=== PATIENT | female | born 1945 | race Caucasian/White ===

== ENCOUNTER → 2017-03-17 | Outpatient (CLI) | payer MEDICARE ==
[2017-03-17 14:07] LABS: ALT 28 U/L (9-52); AST 17 U/L (14-36); Cholesterol 247 mg/dL (<200); HDL Cholesterol 50 mg/dL (40-60); Triglycerides 207 mg/dL (<150)
== END | disposition home or self-care (01) ==
LOC: LABWHC1 13:19
PROVIDERS: ATTEND Internal Medicine Cardiovascular Disease
DX: E78.2 Mixed hyperlipidemia (principal)
CPT/HCPCS: 36415; 80061; 84450; 84460

== ENCOUNTER 2017-11-28 16:45 | Inpatient (IN) | payer MEDICARE, OTHER ==
[2017-11-28] MEDS ORDERED: SODIUM CHLORIDE 0.9% 1,000 ML IV ONE ×3 (17:33→19:32)
[2017-11-28] MEDS ORDERED: IBUPROFEN 600 MG TAB PO STA (17:34)
[2017-11-28] MEDS ORDERED: ACETAMINOPHEN TAB 500 MG TAB PO STA (17:34)
--- NOTE | 2017-11-28 17:37 | ED ---
Female Urogenital HPI - General Chief complaint: Urogenital Stated complaint: UTI Time Seen by Provider: 11/28/17 17:12 Source: patient, RN notes reviewed, old records reviewed Mode of arrival: EMS Limitations: physical limitation - History of Present Illness Initial comments: Patient is a 72-year-old female multiple comorbidities including history of stroke with left-sided paralysis presents today with chief complaint of fever, polyuria and she has urinary tract infection. Patient reports that she has had the symptoms for the past week. She reports that she's had elevated blood sugars for the past month. Patient's daughter did pull me aside and states that they are searching for placement into a intermediate as they are unable to take care of her with home care at this time. Patient has had fevers and chills. Patient is been having Motrin and Tylenol but has not had anything recently. Patient reports that she is on daily Keflex for UTI prevention. Patient also reports that she's been having some episodes of chest pain yesterday. She reports that that has subsided and denies any specific chest pain at this time. She does report that she is having some labored breathing. Patient reports that she's had a history of 4 cardiac stents, hyperlipidemia, high blood pressure, diabetes. - Related Data Home Medications Medication Instructions Recorded Confirmed Isosorbide Mononitrate [Imdur] 30 mg PO DAILY 03/12/14 11/28/17 Apixaban [Eliquis] 5 mg PO BID 08/17/17 11/28/17 Aspirin EC [Ecotrin Low Dose] 81 mg PO DAILY 08/17/17 11/28/17 Ezetimibe [Zetia] 10 mg PO HS 08/17/17 11/28/17 Insulin Aspart [NovoLOG 15 unit SQ AC-TID 08/17/17 11/28/17 (formulary)] Insulin Glargine [Lantus] 25 unit SQ HS 08/17/17 11/28/17 NIFEdipine [NIFEdipine ER] 30 mg PO DAILY 08/17/17 11/28/17 NIFEdipine [NIFEdipine ER] 90 mg PO HS 08/17/17 11/28/17 Ranolazine [Ranexa] 500 mg PO Q12HR 08/17/17 11/28/17 hydrALAZINE HCL [Apresoline] 100 mg PO Q8HR 08/17/17 11/28/17 Cephalexin [Keflex] 250 mg PO DAILY 11/28/17 11/28/17 Docusate [Colace] 100 mg PO BID 11/28/17 11/28/17 Methocarbamol [Robaxin] 500 mg PO BID PRN 11/28/17 11/28/17 Methocarbamol [Robaxin] 500 mg PO HS 11/28/17 11/28/17 Nitroglycerin Sl Tabs [Nitrostat] 0.4 mg SUBLINGUAL Q5M PRN 11/28/17 11/28/17 Previous Rx's Medication Instructions Recorded Losartan [Cozaar] 12.5 mg PO DAILY tab 08/20/17 Allergies Allergy/AdvReac Type Severity Reaction Status Date / Time No Known Allergies Allergy Verified 11/28/17 17:32 Review of Systems ROS Statement: Those systems with pertinent positive or pertinent negative responses have been documented in the HPI. ROS Other: All systems not noted in ROS Statement are negative. Past Medical History Past Medical History: Coronary Artery Disease (CAD), CVA/TIA, Diabetes Mellitus , Deep Vein Thrombosis (DVT), GERD/Reflux, Hyperlipidemia, Hypertension, Myocardial Infarction ([place]), Pneumonia, Renal Disease Additional Past Medical History / Comment(s): Kidney Stones S/P lithotripsy,ibs, migraines, shingles 2007. cva-mild lt sided weakness more are than leg but uses cane when up and has fallen in past. pt has small airway -makes intubation difficult pt usually wears a medical alert bracelet stating this. Stroke 2016. CKD III Last Myocardial Infarction Date:: History of Any Multi-Drug Resistant Organisms: None Reported Past Surgical History: Appendectomy, Bowel Resection, Section, Cholecystectomy, Heart Catheterization With Stent, Hysterectomy Additional Past Surgical History / Comment(s): lithotripsy, umbilical hernia repair, 3 heart caths and 4 stents, prt stated had bowel resection(prolapsed bowel) Past Anesthesia/Blood Transfusion Reactions: No Reported Reaction Date of Last Stent Placement:: UNK Past Psychological History: No Psychological Hx Reported Smoking Status: Never smoker Past Alcohol Use History: None Reported Past Drug Use History: None Reported - Past Family History Mother Family Medical History: Cancer, Diabetes Mellitus, Myocardial Infarction ([place]) General Exam - General Exam Comments Initial Comments: This patient is a morbidly obese 72-year-old female. Patient has contracture of the left arm. She is alert oriented 4. Limitations: physical limitation General appearance: alert, in no apparent distress Head exam: Present: atraumatic, normocephalic, normal inspection Eye exam: Present: normal appearance, PERRL, EOMI. Absent: scleral icterus, conjunctival injection, periorbital swelling ENT exam: Present: normal exam, mucous membranes moist Neck exam: Present: normal inspection. Absent: tenderness, meningismus, lymphadenopathy Respiratory exam: Present: normal lung sounds bilaterally. Absent: respiratory distress, wheezes, rales, rhonchi, stridor Cardiovascular Exam: Present: regular rate, normal rhythm, normal heart sounds. Absent: systolic murmur, diastolic murmur, rubs, gallop, clicks GI/Abdominal exam: Present: soft, tenderness (Suprapubic tenderness.), normal bowel sounds. Absent: distended, guarding, rebound, rigid Extremities exam: Present: normal inspection, full ROM, normal capillary refill. Absent: tenderness, pedal edema, joint swelling, calf tenderness Back exam: Present: normal inspection Neurological exam: Present: alert Psychiatric exam: Present: normal affect, normal mood Skin exam: Present: warm, dry, intact, normal color. Absent: rash Course Vital Signs 11/28/17 11/28/17 17:04 18:55 Temperature 100.2 F H 97.9 F Pulse Rate 108 H 87 Respiratory 18 16 Rate Blood Pressure 146/77 151/70 O2 Sat by Pulse 96 98 Oximetry - Reevaluation(s) Reevaluation #1: 11/28/17 19:34 Patient does meet sepsis criteria with evidence of infection UTI, white blood count 11.3. She is febrile at 100.1. Medical Decision Making - Medical Decision Making Patient is a 72-year-old female presents emergency Department with a fever, dysuria. She is on Keflex daily for urine check infection prevention. Patient reports she has some suprapubic tenderness. She also mentions that yesterday she did have some left-sided chest pain. She denies any specific chest pain at this time. Patient does have a cardiac history with 4 stents, patient's capital markets specialist is Dr. Patiño. Patient urinalysis is positive for significant infection. Urine culture obtained. She does have mildly low white blood count of 11.4. Patient does meet sepsis criteria. PPatient atient lactic acid was negative at this time however. She was given 2 L fluid bolus. I did start the patient on Levaquin due to likely resistant organism to Keflex for UTI and sepsis. Patient is also noted the patient had an elevated troponin of 0.1.84. The patient EKG showed no significant acute changes at this time. Patient started on heparin drip, given nitro and morphine. Patient's family informed of these results. Patient will be admitted at this time for NSTEMI, and urosepsis. Patient's family understands treatment plan. - Lab Data Result diagrams: 11/28/17 18:05 11/28/17 18:05 Lab Results 11/28/17 11/28/17 11/28/17 Range/Units 18:05 18:05 18:05 WBC 11.2 H (3.8-10.6) k/uL RBC 3.88 (3.80-5.40) m/uL Hgb 11.6 (11.4-16.0) gm/dL Hct 35.7 (34.0-46.0) % MCV 92.0 (80.0-100.0) fL MCH 29.9 (25.0-35.0) pg MCHC 32.5 (31.0-37.0) g/dL RDW 15.1 (11.5-15.5) % Plt Count 272 (150-450) k/uL Neutrophils % 73 % Lymphocytes % 19 % Monocytes % 4 % Eosinophils % 2 % Basophils % 1 % Neutrophils # 8.2 H (1.3-7.7) k/uL Lymphocytes # 2.1 (1.0-4.8) k/uL Monocytes # 0.5 (0-1.0) k/uL Eosinophils # 0.2 (0-0.7) k/uL Basophils # 0.1 (0-0.2) k/uL PT 10.7 (9.0-12.0) sec INR 1.1 (<1.2) APTT 27.3 (22.0-30.0) sec Sodium 145 (137-145) mmol/L Potassium 3.8 (3.5-5.1) mmol/L Chloride 114 H (98-107) mmol/L Carbon Dioxide 17 L (22-30) mmol/L Anion Gap 14 mmol/L BUN 27 H (7-17) mg/dL Creatinine 1.80 H (0.52-1.04) mg/dL Est GFR (MDRD) Af Amer 34 (>60 ml/min/1.73 sqM) Est GFR (MDRD) Non-Af 28 (>60 ml/min/1.73 sqM) Glucose 159 H (74-99) mg/dL POC Glucose (mg/dL) (75-99) mg/dL POC Glu Retail Operations Specialist ID Plasma Lactic Acid Jaspreet (0.7-2.0) mmol/L Calcium 10.1 (8.4-10.2) mg/dL Total Bilirubin 0.3 (0.2-1.3) mg/dL AST 13 L (14-36) U/L ALT 20 (9-52) U/L Alkaline Phosphatase 111 (38-126) U/L Total Creatine Kinase (30-135) U/L CK-MB (CK-2) (0.0-2.4) ng/mL CK-MB (CK-2) Rel Index Troponin I (0.000-0.034) ng/mL Total Protein 7.2 (6.3-8.2) g/dL Albumin 3.7 (3.5-5.0) g/dL Urine Color Urine Appearance (Clear) Urine pH (5.0-8.0) Ur Specific [place] (1.001-1.035) Urine Protein (Negative) Urine Glucose (UA) (Negative) Urine Ketones (Negative) Urine Blood (Negative) Urine Nitrite (Negative) Urine Bilirubin (Negative) Urine Urobilinogen (<2.0) mg/dL Ur Leukocyte Esterase (Negative) Urine RBC (0-5) /hpf Urine WBC (0-5) /hpf Urine WBC Clumps (None) /hpf Hyaline Casts (0-2) /lpf Urine Yeast (Budding) (None) /hpf Influenza Type A RNA (Not Detectd) Influenza Type B (PCR) (Not Detectd) 11/28/17 11/28/17 11/28/17 Range/Units 18:05 18:05 18:12 WBC (3.8-10.6) k/uL RBC (3.80-5.40) m/uL Hgb (11.4-16.0) gm/dL Hct (34.0-46.0) % MCV (80.0-100.0) fL MCH (25.0-35.0) pg MCHC (31.0-37.0) g/dL RDW (11.5-15.5) % Plt Count (150-450) k/uL Neutrophils % % Lymphocytes % % Monocytes % % Eosinophils % % Basophils % % Neutrophils # (1.3-7.7) k/uL Lymphocytes # (1.0-4.8) k/uL Monocytes # (0-1.0) k/uL Eosinophils # (0-0.7) k/uL Basophils # (0-0.2) k/uL PT (9.0-12.0) sec INR (<1.2) APTT (22.0-30.0) sec Sodium (137-145) mmol/L Potassium (3.5-5.1) mmol/L Chloride (98-107) mmol/L Carbon Dioxide (22-30) mmol/L Anion Gap mmol/L BUN (7-17) mg/dL Creatinine (0.52-1.04) mg/dL Est GFR (MDRD) Af Amer (>60 ml/min/1.73 sqM) Est GFR (MDRD) Non-Af (>60 ml/min/1.73 sqM) Glucose (74-99) mg/dL POC Glucose (mg/dL) (75-99) mg/dL POC Glu Retail Operations Specialist ID Plasma Lactic Acid Jaspreet 1.7 (0.7-2.0) mmol/L Calcium (8.4-10.2) mg/dL Total Bilirubin (0.2-1.3) mg/dL AST (14-36) U/L ALT (9-52) U/L Alkaline Phosphatase (38-126) U/L Total Creatine Kinase 33 (30-135) U/L CK-MB (CK-2) 1.0 (0.0-2.4) ng/mL CK-MB (CK-2) Rel Index 3.0 Troponin I 0.148 H* (0.000-0.034) ng/mL Total Protein (6.3-8.2) g/dL Albumin (3.5-5.0) g/dL Urine Color Urine Appearance (Clear) Urine pH (5.0-8.0) Ur Specific [place] (1.001-1.035) Urine Protein (Negative) Urine Glucose (UA) (Negative) Urine Ketones (Negative) Urine Blood (Negative) Urine Nitrite (Negative) Urine Bilirubin (Negative) Urine Urobilinogen (<2.0) mg/dL Ur Leukocyte Esterase (Negative) Urine RBC (0-5) /hpf Urine WBC (0-5) /hpf Urine WBC Clumps (None) /hpf Hyaline Casts (0-2) /lpf Urine Yeast (Budding) (None) /hpf Influenza Type A RNA Not Detected (Not Detectd) Influenza Type B (PCR) Not Detected (Not Detectd) 11/28/17 11/28/17 Range/Units 18:12 18:39 WBC (3.8-10.6) k/uL RBC (3.80-5.40) m/uL Hgb (11.4-16.0) gm/dL Hct (34.0-46.0) % MCV (80.0-100.0) fL MCH (25.0-35.0) pg MCHC (31.0-37.0) g/dL RDW (11.5-15.5) % Plt Count (150-450) k/uL Neutrophils % % Lymphocytes % % Monocytes % % Eosinophils % % Basophils % % Neutrophils # (1.3-7.7) k/uL Lymphocytes # (1.0-4.8) k/uL Monocytes # (0-1.0) k/uL Eosinophils # (0-0.7) k/uL Basophils # (0-0.2) k/uL PT (9.0-12.0) sec INR (<1.2) APTT (22.0-30.0) sec Sodium (137-145) mmol/L Potassium (3.5-5.1) mmol/L Chloride (98-107) mmol/L Carbon Dioxide (22-30) mmol/L Anion Gap mmol/L BUN (7-17) mg/dL Creatinine (0.52-1.04) mg/dL Est GFR (MDRD) Af Amer (>60 ml/min/1.73 sqM) Est GFR (MDRD) Non-Af (>60 ml/min/1.73 sqM) Glucose (74-99) mg/dL POC Glucose (mg/dL) 132 H (75-99) mg/dL POC Glu Retail Operations Specialist ID Audelia Crow Plasma Lactic Acid Jaspreet (0.7-2.0) mmol/L Calcium (8.4-10.2) mg/dL Total Bilirubin (0.2-1.3) mg/dL AST (14-36) U/L ALT (9-52) U/L Alkaline Phosphatase (38-126) U/L Total Creatine Kinase (30-135) U/L CK-MB (CK-2) (0.0-2.4) ng/mL CK-MB (CK-2) Rel Index Troponin I (0.000-0.034) ng/mL Total Protein (6.3-8.2) g/dL Albumin (3.5-5.0) g/dL Urine Color Dark Yellow Urine Appearance Cloudy H (Clear) Urine pH 6.0 (5.0-8.0) Ur Specific [place] 1.017 (1.001-1.035) Urine Protein 3+ (Negative) Urine Glucose (UA) 1+ (Negative) Urine Ketones Negative (Negative) Urine Blood Negative (Negative) Urine Nitrite Negative (Negative) Urine Bilirubin Negative (Negative) Urine Urobilinogen <2.0 (<2.0) mg/dL Ur Leukocyte Esterase Large (Negative) Urine RBC 22 H (0-5) /hpf Urine WBC >182 H (0-5) /hpf Urine WBC Clumps Many H (None) /hpf Hyaline Casts 99 H (0-2) /lpf Urine Yeast (Budding) Moderate H (None) /hpf Influenza Type A RNA (Not Detectd) Influenza Type B (PCR) (Not Detectd) 11/28/17 19:33 EKG shows sinus rhythm with occasional PACs. Normal QRS and table. Considering primary T-wave abnormality. Ventricular rate of 8 87 bpm. IL interval 160 ms. QRS duration a formal seconds. QTQTC 390/469 ms. - Radiology Data Radiology results: report reviewed Chronic changes without any acute cardiopulmonary process. Abdominal x-ray shows on instructed bowel gas pattern. Moderate stool burn them. Either bilateral nephrolithiasis or renal vascular calcifications. Disposition Clinical Impression: Sepsis due to urinary tract infection, NSTEMI (non-ST elevated myocardial infarction), HTN (hypertension), benign, CKD (chronic kidney disease) stage 3, GFR 30-59 ml/min Disposition: ADMITTED IP TO THIS HOSP Condition: Stable Referrals: Kem Stanley MD [Primary Care Provider] - 1-2 days Time of Disposition: 19:34
[2017-11-28 18:24] LABS: Basophils # (A) 0.1 k/uL (0-0.2); Basophils % (A) 1 %; Eosinophils # (A) 0.2 k/uL (0-0.7); Eosinophils % (A) 2 %; HCT 35.7 % (34.0-46.0); HGB 11.6 gm/dL (11.4-16.0); Lymphocytes # (A) 2.1 k/uL (1.0-4.8); Lymphocytes % (A) 19 %; MCH 29.9 pg (25.0-35.0); MCHC 32.5 g/dL (31.0-37.0); Mean Platelet Volume 10.3; Monocytes # (A) 0.5 k/uL (0-1.0); Monocytes % (A) 4 %; Neutrophils # (A) 8.2 k/uL (1.3-7.7); Neutrophils % (A) 73 %; Platelet Count 272 k/uL (150-450); RBC 3.88 m/uL (3.80-5.40); RDW 15.1 % (11.5-15.5); WBC 11.2 k/uL (3.8-10.6)
[2017-11-28 18:35] LABS: INR 1.1 (<1.2); Partial Thromboplastin Time 27.3 sec (22.0-30.0); Prothrombin Time 10.7 sec (9.0-12.0)
[2017-11-28 18:40] LABS: Glucose,Whole Blood 132 mg/dL (75-99)
[2017-11-28 18:42] LABS: Albumin 3.7 g/dL (3.5-5.0); Calcium 10.1 mg/dL (8.4-10.2); Potassium 3.8 mmol/L (3.5-5.1); Total Bilirubin 0.3 mg/dL (0.2-1.3); Total Protein 7.2 g/dL (6.3-8.2)
--- NOTE | 2017-11-28 18:42 | XR ---
EXAMINATION TYPE: XR KUB DATE OF EXAM: 11/28/2017 CLINICAL DATA: 72-year-old female with pain, PHH COMPARISON: None FINDINGS: Lung bases are clear. Supine imaging is limited for assessment of free intraperitoneal air. No dilated small bowel or air-fluid levels. Scattered air throughout the colon extending distally to the rectum. Mild to moderate stool burden. Vascular calcifications in the pelvis and left upper quadrant related to the splenic artery. Either a dditional renal calcifications or bilateral renal calculi measuring up to 8 mm on the left and 5 mm o n the right. IMPRESSION: 1. Nonobstructive bowel gas pattern. Moderate stool burden. 2. Either bilateral nephrolithiasis or renal vascular calcifications.
--- NOTE | 2017-11-28 18:44 | XR ---
EXAMINATION TYPE: XR chest 2V DATE OF EXAM: 11/28/2017 COMPARISON: 08/17/2017 HISTORY: 72-year-old female with fever TECHNIQUE: AP and lateral views FINDINGS: Heart upper limits of normal in size. Mild elongation of the thoracic aorta. Diffuse interstitial pro minence is unchanged. No consolidation or pleural effusion. IMPRESSION: Chronic changes without acute cardiopulmonary process.
[2017-11-28 18:53] LABS: Budding Yeast,Urine Moderate /hpf; Hyaline Casts,Urine 99 /lpf (0-2); RBC,Urine 22 /hpf (0-5); WBC,Urine >182 /hpf (0-5)
[2017-11-28 19:00] LABS: Troponin I 0.148 ng/mL (0.000-0.034)
[2017-11-28] MEDS ORDERED: LEVOFLOXACIN 750MG-D5W PMX 750 MG in DEXTROSE/WATER 1 150ML.BAG IVPB STA (19:10)
[2017-11-28] MEDS ORDERED: ASPIRIN 325 MG TAB PO STA (19:11)
[2017-11-28] MEDS ORDERED: MORPHINE SULFATE 2 MG/ML SYRINGE IVP ONE (19:11)
[2017-11-28 19:17] LABS: Appearance,Urine Cloudy (Clear); Color,Urine Dark Yellow; Specific Gravity,Urine 1.017 (1.001-1.035)
[2017-11-28 19:18] LABS: Bilirubin,Urine Negative (Negative); Blood,Urine Negative (Negative); Glucose,Urine (UA) 1+ (Negative); Ketones,Urine Negative (Negative); Protein,Urine 3+ (Negative)
[2017-11-28 19:19] LABS: Leukocyte Esterase,Urine Large (Negative); Nitrite,Urine Negative (Negative); Urobilinogen,Urine <2.0 mg/dL (<2.0)
[2017-11-28] MEDS ORDERED: HEPARIN SODIUM,PORCINE 5,000 UNIT/ML 1 ML VIAL IV ONE (19:25)
[2017-11-28] MEDS ORDERED: MORPHINE SULFATE 2 MG/ML SYRINGE IVP STA (19:34)
[2017-11-28] MEDS ORDERED: ONDANSETRON 4 MG/2 ML VIAL IVP STA (19:41)
[2017-11-28] MEDS ORDERED: ONDANSETRON 4 MG/2 ML VIAL IVP PRN (19:42)
[2017-11-28] MEDS ORDERED: IBUPROFEN 400 MG TAB PO PRN (19:42)
[2017-11-28] MEDS ORDERED: NALOXONE 0.4 MG/ML 1 ML VIAL IV PRN (19:42)
[2017-11-28] MEDS ORDERED: HYDROmorphone 0.5 MG/0.5 ML SYRINGE IVP PRN (19:42)
[2017-11-28 20:42] LABS: Glucose,Whole Blood 105 mg/dL (75-99)
[2017-11-28] MEDS: SODIUM CHLORIDE 0.9% 1,000 ML IV SCH (21:53)
[2017-11-28 22:04] VITALS: BMI 36.6
[2017-11-28] MEDS ORDERED: HEPARIN SODIUM,PORCINE 5,000 UNIT/ML 1 ML VIAL IV PRN (22:45)
[2017-11-28] MEDS ORDERED: HEPARIN SOD,PORK IN 0.45% NACL 25,000 UNIT in 0.45% NACL 1 500ML.BAG IV SCH (22:45)
[2017-11-28] MEDS: EZETIMIBE 10 MG TAB PO SCH (23:26)
[2017-11-28] MEDS: RANOLAZINE 500 MG TAB.ER.12H PO SCH (23:27)
[2017-11-28] MEDS: hydrALAZINE HCL 50 MG TAB PO SCH (23:27)
[2017-11-28] MEDS: NIFEdipine XL 90 MG TAB.ER.24 PO SCH (23:58)
[2017-11-29 01:34] LABS: Creatine Kinase MB 1.4 ng/mL (0.0-2.4); Troponin I 0.192 ng/mL (0.000-0.034)
[2017-11-29] MEDS: SODIUM CHLORIDE 0.9% 1,000 ML IV SCH ×2 (05:33→16:23)
[2017-11-29 05:38] LABS: Glucose,Whole Blood 112 mg/dL (75-99)
[2017-11-29] MEDS: INSULIN ASPART 100 UNIT/ML 1 ML 10 ML VIAL SQ SCH ×4 (06:09→22:04)
[2017-11-29 06:43] LABS: Basophils # (A) 0.1 k/uL (0-0.2); Basophils % (A) 1 %; Eosinophils # (A) 0.4 k/uL (0-0.7); Eosinophils % (A) 6 %; HCT 31.3 % (34.0-46.0); Lymphocytes # (A) 2.4 k/uL (1.0-4.8); Lymphocytes % (A) 35 %; MCH 29.6 pg (25.0-35.0); MCHC 31.9 g/dL (31.0-37.0); Mean Platelet Volume 8.9; Monocytes # (A) 0.3 k/uL (0-1.0); Monocytes % (A) 4 %; Neutrophils # (A) 3.5 k/uL (1.3-7.7); Neutrophils % (A) 52 %; Platelet Count 199 k/uL (150-450); RBC 3.37 m/uL (3.80-5.40); RDW 13.9 % (11.5-15.5); WBC 6.7 k/uL (3.8-10.6)
[2017-11-29 06:53] LABS: Cholesterol 145 mg/dL (<200); HDL Cholesterol 35 mg/dL (40-60); LDL Cholesterol,Calculated 74 mg/dL (0-99); Triglycerides 178 mg/dL (<150)
[2017-11-29] MEDS: NITROGLYCERIN SL TABS 0.4 MG TAB SUBLINGUAL PRN ×5 (07:01→15:33)
[2017-11-29 07:15] LABS: Creatine Kinase MB 1.5 ng/mL (0.0-2.4)
[2017-11-29 07:23] LABS: Troponin I 0.143 ng/mL (0.000-0.034)
[2017-11-29] MEDS: DOCUSATE 100 MG CAP PO SCH ×2 (07:56→22:05)
[2017-11-29] MEDS: hydrALAZINE HCL 50 MG TAB PO SCH ×2 (07:56→16:25)
[2017-11-29] MEDS: ASPIRIN 81 MG PO SCH (07:56)
[2017-11-29] MEDS: ISOSORBIDE MONONITRATE ER 30 MG TAB.ER.24H PO SCH (07:57)
[2017-11-29] MEDS: NIFEdipine XL 30 MG TAB.ER.24 PO SCH (07:58)
[2017-11-29] MEDS: RANOLAZINE 500 MG TAB.ER.12H PO SCH ×2 (07:59→22:05)
[2017-11-29] MEDS ORDERED: PANTOPRAZOLE 40 MG/10 ML VIAL IV SCH (09:00)
[2017-11-29] MEDS ORDERED: LOSARTAN 25 MG TAB PO SCH (09:00)
[2017-11-29 11:48] LABS: Glucose,Whole Blood 194 mg/dL (75-99)
--- NOTE | 2017-11-29 14:07 | P.CRDCN ---
History of Present Illness History of present illness: Patient presents to the hospital complaining of fever or polyuria and urinary tract symptoms. She's also had elevated blood sugars for the last month. She is feeling chills. She also has some chest discomfort yesterday but this is now subsided. According to the ER notes she was having some labored breathing yesterday but upon my examination and evaluation she looked quite comfortable and was resting comfortably in bed. She has had stroke in the past Medication list was reviewed and as documented in the chart Review of systems: + fever chills or rigors, no cough, phlegm or expectoration, no nausea, vomiting or diarrhea, no hematuria, + dysuria, no musculoskeletal complaints, no strokes or seizures, no skin lesions. ALLERGIES reviewed Past history of coronary artery disease N[place] stenting dyslipidemia hypertension adult-onset diabetes she is also ELIQUIS probably for atrial fibrillation On examination blood pressure is 135/61 mmHg, she is afebrile 98.2F, pulse rate in the 80s and 90s, normal respirations Breath sounds are clear no rhonchi no crackles Abdomen soft nontender extremities warm Lungs are clear heart sounds S1 and S2 normal Impression Patient admitted with fever polyuria UTI Coronary artery disease status post cardiac stenting in the past Dyslipidemia Hypertension Adult-onset diabetes Atrial fibrillation, on ELIQUIS EKG shows sinus rhythm Abnormal troponins of 0.1 consistent with myocardial injury Intermittent left-sided chest discomfort prior to admission EKG does not show any ST segment elevations Suggest Treatment for UTI 12 Lead ECG tomorrow, 2-D echo tomorrow Beta blockers Statins Aspirin Reevaluation in the next 24-48 hours Past Medical History Past Medical History: Coronary Artery Disease (CAD), CVA/TIA, Diabetes Mellitus , Deep Vein Thrombosis (DVT), GERD/Reflux, Hyperlipidemia, Hypertension, Myocardial Infarction ([place]), Pneumonia, Renal Disease Additional Past Medical History / Comment(s): Kidney Stones S/P lithotripsy,ibs, migraines, shingles 2007. cva- lt sided weakness more are than leg but uses cane when up and has fallen in past. pt has small airway -makes intubation difficult pt usually wears a medical alert bracelet stating this. Stroke 2017. CKD III Last Myocardial Infarction Date:: History of Any Multi-Drug Resistant Organisms: None Reported Past Surgical History: Appendectomy, Bowel Resection, Section, Cholecystectomy, Heart Catheterization With Stent, Hysterectomy Additional Past Surgical History / Comment(s): lithotripsy, umbilical hernia repair, 3 heart caths and 4 stents, prt stated had bowel resection(prolapsed bowel) Past Anesthesia/Blood Transfusion Reactions: No Reported Reaction Date of Last Stent Placement:: UNK Past Psychological History: No Psychological Hx Reported Additional Psychological History / Comment(s): uses wheelchair Smoking Status: Never smoker Past Alcohol Use History: None Reported Past Drug Use History: None Reported - Past Family History Mother Family Medical History: Cancer, Diabetes Mellitus, Myocardial Infarction ([place]) Medications and Allergies Home Medications Medication Instructions Recorded Confirmed Type RX: Isosorbide Mononitrate [Imdur] 30 mg PO DAILY 03/12/14 11/28/17 History RX: Apixaban [Eliquis] 5 mg PO BID 08/17/17 11/28/17 History RX: Aspirin EC [Ecotrin Low Dose] 81 mg PO DAILY 08/17/17 11/28/17 History RX: Ezetimibe [Zetia] 10 mg PO HS 08/17/17 11/28/17 History RX: Insulin Aspart [NovoLOG 15 unit SQ AC-TID 08/17/17 11/28/17 History (formulary)] RX: Insulin Glargine [Lantus] 25 unit SQ HS 08/17/17 11/28/17 History RX: NIFEdipine [NIFEdipine ER] 30 mg PO DAILY 08/17/17 11/28/17 History RX: NIFEdipine [NIFEdipine ER] 90 mg PO HS 08/17/17 11/28/17 History RX: Ranolazine [Ranexa] 500 mg PO Q12HR 08/17/17 11/28/17 History RX: hydrALAZINE HCL [Apresoline] 100 mg PO Q8HR 08/17/17 11/28/17 History RX: Losartan [Cozaar] 12.5 mg PO DAILY tab 08/20/17 11/28/17 Rx Cephalexin [Keflex] 250 mg PO DAILY 11/28/17 11/28/17 History Docusate [Colace] 100 mg PO BID 11/28/17 11/28/17 History Methocarbamol [Robaxin] 500 mg PO BID PRN 11/28/17 11/28/17 History Methocarbamol [Robaxin] 500 mg PO HS 11/28/17 11/28/17 History Nitroglycerin Sl Tabs [Nitrostat] 0.4 mg SUBLINGUAL Q5M PRN 11/28/17 11/28/17 History Allergies Allergy/AdvReac Type Severity Reaction Status Date / Time No Known Allergies Allergy Verified 11/28/17 17:32 Physical Exam Vitals: Vital Signs Temp Pulse Pulse Resp BP BP Pulse Ox 11/29/17 08:00 98.2 F 80 16 128/71 98 11/29/17 04:00 97.8 F 84 18 152/68 96 11/29/17 00:00 97.0 F L 80 18 151/67 96 11/28/17 21:58 98.1 F 90 18 153/66 99 11/28/17 21:00 98.1 F 90 18 153/66 99 11/28/17 19:59 97.8 F 89 18 154/85 98 11/28/17 18:55 97.9 F 87 16 151/70 98 11/28/17 17:04 100.2 F H 108 H 18 146/77 96 Intake and Output 11/28/17 11/29/17 11/29/17 22:59 06:59 14:59 Other: Weight 91 kg 88 kg Results 11/29/17 06:14 11/28/17 18:05 Cardiac Enzymes 11/28/17 11/28/17 11/29/17 Range/Units 18:05 18:05 00:28 AST 13 L (14-36) U/L CK-MB (CK-2) 1.0 1.4 (0.0-2.4) ng/mL Troponin I 0.148 H* 0.192 H* (0.000-0.034) ng/mL 11/29/17 Range/Units 06:14 AST (14-36) U/L CK-MB (CK-2) 1.5 (0.0-2.4) ng/mL Troponin I 0.143 H* (0.000-0.034) ng/mL Coagulation 11/28/17 11/29/17 Range/Units 18:05 06:14 PT 10.7 (9.0-12.0) sec APTT 27.3 54.8 H (22.0-30.0) sec Lipids 11/29/17 Range/Units 06:14 Triglycerides 178 H (<150) mg/dL Cholesterol 145 (<200) mg/dL HDL Cholesterol 35 L (40-60) mg/dL CBC 11/28/17 11/29/17 Range/Units 18:05 06:14 WBC 11.2 H 6.7 (3.8-10.6) k/uL RBC 3.88 3.37 L (3.80-5.40) m/uL Hgb 11.6 10.0 L D (11.4-16.0) gm/dL Hct 35.7 31.3 L (34.0-46.0) % Plt Count 272 199 (150-450) k/uL Comprehensive Metabolic Panel 11/28/17 Range/Units 18:05 Sodium 145 (137-145) mmol/L Potassium 3.8 (3.5-5.1) mmol/L Chloride 114 H (98-107) mmol/L Carbon Dioxide 17 L (22-30) mmol/L BUN 27 H (7-17) mg/dL Creatinine 1.80 H (0.52-1.04) mg/dL Glucose 159 H (74-99) mg/dL Calcium 10.1 (8.4-10.2) mg/dL AST 13 L (14-36) U/L ALT 20 (9-52) U/L Alkaline Phosphatase 111 (38-126) U/L Total Protein 7.2 (6.3-8.2) g/dL Albumin 3.7 (3.5-5.0) g/dL Current Medications Generic Name Dose Route Start Last Admin Trade Name Freq PRN Reason Stop Dose Admin Acetaminophen 650 mg 11/28/17 19:42 Tylenol Tab PO Q6HR PRN Mild Pain or Fever > 100.5 Aspirin 81 mg 11/29/17 09:00 11/29/17 07:56 Aspirin PO 81 mg DAILY ZI Administration Atorvastatin Calcium 20 mg 11/29/17 21:00 Lipitor PO HS ZI Docusate Sodium 100 mg 11/29/17 09:00 11/29/17 07:56 Colace PO 100 mg BID ZI Administration Ezetimibe 10 mg 11/28/17 22:45 11/28/17 23:26 Zetia PO 10 mg HS ZI Administration Heparin Sodium (Porcine) 0 unit 11/28/17 22:45 Heparin IV PER PROTOCOL PRN Low PTT Protocol Hydralazine HCl 100 mg 11/29/17 00:00 11/29/17 07:56 Apresoline PO 100 mg Q8HR ZI Administration Sodium Chloride 1,000 mls @ 100 mls/hr 11/28/17 19:45 11/29/17 05:33 Saline 0.9% IV Not Given .Q10H [facility] Heparin Sodium/Sodium Chloride 500 mls @ 20.02 mls/hr 11/28/17 22:45 23:27 25,000 unit/ Sodium Chloride IV 11 units/kg/hr .Q24H ZI 20.02 mls/hr Protocol Administration 11 UNITS/KG/HR Levofloxacin 750 mg/ IV 150 mls @ 100 mls/hr 11/29/17 21:00 Solution IVPB Q24H [facility] Insulin Aspart 0 unit 11/29/17 07:30 11/29/17 06:09 Novolog SQ Not Given ACHS [facility] Protocol Insulin Detemir 15 unit 11/29/17 21:00 Levemir SQ HS [facility] Isosorbide Mononitrate 30 mg 11/29/17 09:00 11/29/17 07:57 Imdur PO 30 mg DAILY [facility] Administration Methocarbamol 500 mg 11/29/17 21:00 Robaxin PO HS [facility] Metoprolol Tartrate 25 mg 11/29/17 21:00 Lopressor PO BID [facility] Naloxone HCl 0.2 mg 11/28/17 19:42 Narcan IV Q2M PRN Opioid Reversal Nifedipine 30 mg 11/29/17 09:00 11/29/17 07:58 Procardia Xl PO 30 mg DAILY ZI Administration Nifedipine 90 mg 11/28/17 22:45 11/28/17 23:58 Procardia Xl PO 90 mg HS [facility] Administration Nitroglycerin 0.4 mg 11/28/17 19:25 11/29/17 07:10 Nitrostat SUBLINGUAL 0.4 mg Q5M PRN Administration Chest Pain Ondansetron HCl 4 mg 11/28/17 19:42 Zofran IVP Q8HR PRN Nausea And Vomiting Pantoprazole Sodium 40 mg 11/29/17 09:00 11/29/17 07:58 Protonix IV 40 mg DAILY ZI Administration Ranolazine 500 mg 11/28/17 22:45 11/29/17 07:59 Ranexa PO 500 mg Q12HR ZI Administration Intake and Output 11/28/17 11/29/17 11/29/17 22:59 06:59 14:59 Other: Weight 91 kg 88 kg 11/29/17 06:14 11/28/17 18:05
[2017-11-29] MEDS ORDERED: APIXABAN 5 MG TAB PO SCH ×2 (14:23→21:00)
--- NOTE | 2017-11-29 14:50 | P.HPIM ---
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 Patient was started on Keflex few days ago for chronic UTI. Previous urine cultures are positive for enterococcus and E. coli. Patient received a dose of levofloxacin in the ED. Labs done in the ER was suggestive of WBC 11.2, troponin 0.148--0.19--0.143. EKG suggestive of some Q waves in lead lead aVF but no other ST or T-wave changes seen. Cardiology evaluated the patient and recommends monitoring for the next 24 hours. Heparin drip discontinued patient started on eliquis. Triglyceride 178 LDL 74 HDL 35. UA done in the ER was cloudy, large leukocyte esterase with WBC more than 182 and 99 hyaline casts. Influenza was negative. Patient is admitted with sepsis from UTI. Patient's family is concerned about patient's care at home which the family is unable to provide and is looking for jail facility for her. Review of Systems Constitutional: Denies chills, Denies fever, Denies lethargy, Denies malaise, Denies poor appetite, Denies weakness, Denies weight loss Eyes: denies decreased vision, denies diplopia, denies discharge, denies pain Ears: deny: decreased hearing Ears, nose, mouth and throat: Denies dental pain, Denies headache, Denies nasal discharge, Denies nose pain Cardiovascular: Endorses chest pain, Denies decreased exercise tolerance, Denies edema, Denies high blood pressure, Denies irregular heart beat, Denies palpitations, Denies paroxysmal nocturnal dyspnea, Denies rapid heart beat, Denies shortness of breath Respiratory: Denies congestion, Denies cough, Denies cough with sputum, Denies dyspnea, Denies home oxygen, Denies wheezing Gastrointestinal: Denies abdominal pain, Denies change in bowel habits, Denies coffee ground emesis, Denies early satiety, Denies excessive gas, Denies heartburn, Denies hematemesis, Denies hematochezia, Denies loss of appetite, Denies nausea, Denies vomiting Genitourinary: Endorses dysuria, Denies flank pain, Denies kidney stones, Denies menorrhagia, endorses urgency and frequency Musculoskeletal: Denies gait dysfunction, Denies limitation of motion, Denies morning stiffness, Denies muscle cramps Integumentary: Denies rash, Denies wounds, Denies brittle nails, Denies change in hair/nails, Denies darkening of skin Neurological: Denies balance difficulties, Denies change in speech, Denies double vision, Denies gait dysfunction, Denies loss of vision, Denies motor disturbance, Denies numbness, Denies paralysis, Denies paresthesias, Denies seizures Psychiatric: Denies anxiety, Denies depression Endocrine: Denies excessive sweating, Denies excessive thirst, Denies high blood sugars, Denies palpitations Hematologic/Lymphatic: Denies easy bruising, Denies lymphadenopathy Past Medical History Past Medical History: Coronary Artery Disease (CAD), CVA/TIA, Diabetes Mellitus , Deep Vein Thrombosis (DVT), GERD/Reflux, Hyperlipidemia, Hypertension, Myocardial Infarction ([place]), Pneumonia, Renal Disease Additional Past Medical History / Comment(s): Kidney Stones S/P lithotripsy,ibs, migraines, shingles 2008. cva- lt sided weakness more are than leg but uses cane when up and has fallen in past. pt has small airway -makes intubation difficult pt usually wears a medical alert bracelet stating this. Stroke 2017. CKD III Last Myocardial Infarction Date:: History of Any Multi-Drug Resistant Organisms: None Reported Past Surgical History: Appendectomy, Bowel Resection, Section, Cholecystectomy, Heart Catheterization With Stent, Hysterectomy Additional Past Surgical History / Comment(s): lithotripsy, umbilical hernia repair, 3 heart caths and 4 stents, prt stated had bowel resection(prolapsed bowel) Past Anesthesia/Blood Transfusion Reactions: No Reported Reaction Date of Last Stent Placement:: UNK Past Psychological History: No Psychological Hx Reported Additional Psychological History / Comment(s): uses wheelchair Smoking Status: Never smoker Past Alcohol Use History: None Reported Past Drug Use History: None Reported Additional History: Patient lives with her daughter and son-in-law. She has 12 kids. She would like to go to one of the jail for better care but does not have financial expenses to pay for it. - Past Family History Mother Family Medical History: Cancer, Diabetes Mellitus, Myocardial Infarction ([place]) Father Additional Family Medical History / Comment(s): Father shot himself at the age of 43 Medications and Allergies Home Medications Medication Instructions Recorded Confirmed Type Isosorbide Mononitrate [Imdur] 30 mg PO DAILY 03/12/14 11/28/17 History Apixaban [Eliquis] 5 mg PO BID 08/17/17 11/28/17 History Aspirin EC [Ecotrin Low Dose] 81 mg PO DAILY 08/17/17 11/28/17 History Ezetimibe [Zetia] 10 mg PO HS 08/17/17 11/28/17 History Insulin Aspart [NovoLOG 15 unit SQ AC-TID 08/17/17 11/28/17 History (formulary)] Insulin Glargine [Lantus] 25 unit SQ HS 08/17/17 11/28/17 History NIFEdipine [NIFEdipine ER] 30 mg PO DAILY 08/17/17 11/28/17 History NIFEdipine [NIFEdipine ER] 90 mg PO HS 08/17/17 11/28/17 History Ranolazine [Ranexa] 500 mg PO Q12HR 08/17/17 11/28/17 History hydrALAZINE HCL [Apresoline] 100 mg PO Q8HR 08/17/17 11/28/17 History Losartan [Cozaar] 12.5 mg PO DAILY tab 08/20/17 11/28/17 Rx Cephalexin [Keflex] 250 mg PO DAILY 11/28/17 11/28/17 History Docusate [Colace] 100 mg PO BID 11/28/17 11/28/17 History Methocarbamol [Robaxin] 500 mg PO BID PRN 11/28/17 11/28/17 History Methocarbamol [Robaxin] 500 mg PO HS 11/28/17 11/28/17 History Nitroglycerin Sl Tabs [Nitrostat] 0.4 mg SUBLINGUAL Q5M PRN 11/28/17 11/28/17 History Allergies Allergy/AdvReac Type Severity Reaction Status Date / Time No Known Allergies Allergy Verified 11/28/17 17:32 Physical Exam Vitals: Vital Signs Temp Pulse Pulse Resp BP BP Pulse Ox 11/29/17 11:19 18 11/29/17 11:17 98.2 F 96 18 135/61 97 11/29/17 08:00 98.2 F 80 16 128/71 98 11/29/17 04:00 97.8 F 84 18 152/68 96 11/29/17 00:00 97.0 F L 80 18 151/67 96 11/28/17 21:58 98.1 F 90 18 153/66 99 11/28/17 21:00 98.1 F 90 18 153/66 99 11/28/17 19:59 97.8 F 89 18 154/85 98 11/28/17 18:55 97.9 F 87 16 151/70 98 11/28/17 17:04 100.2 F H 108 H 18 146/77 96 Intake and Output 11/28/17 11/29/17 11/29/17 22:59 06:59 14:59 Other: Weight 91 kg 88 kg - Constitutional General appearance: cooperative, no acute distress, obese - EENT Eyes: anicteric sclerae, PERRLA, normal appearance ENT: hearing grossly normal - Neck Neck: no lymphadenopathy, normal ROM, no other, no rigidity, no stridor, no thyromegaly - Respiratory Respiratory: bilateral: CTA, negative: diminished, dullness, rales, rhonchi - Cardiovascular Rhythm: regular Heart sounds: normal: S1, S2 Abnormal Heart Sounds: no systolic murmur, no diastolic murmur, no rub, no S3 Gallop, no S4 Gallop, no click, no other - Gastrointestinal General gastrointestinal: normal bowel sounds, soft - Integumentary Integumentary: no rash - Neurologic Neurologic: CNII-XII intact, left-sided hemiparesis present involving both upper and lower extremity - Musculoskeletal Musculoskeletal: Strength reduced in the left lower extremity and upper extremity. Patient is wheelchair bound - Psychiatric Psychiatric: A&O x's 3, appropriate affect Results CBC & Chem 7: 11/29/17 06:14 11/28/17 18:05 Labs: Abnormal Lab Results - Last 24 Hours (Table) 11/28/17 11/28/17 11/28/17 Range/Units 18:05 18:05 18:05 WBC 11.2 H (3.8-10.6) k/uL RBC (3.80-5.40) m/uL Hgb (11.4-16.0) gm/dL Hct (34.0-46.0) % Neutrophils # 8.2 H (1.3-7.7) k/uL APTT (22.0-30.0) sec Chloride 114 H (98-107) mmol/L Carbon Dioxide 17 L (22-30) mmol/L BUN 27 H (7-17) mg/dL Creatinine 1.80 H (0.52-1.04) mg/dL Glucose 159 H (74-99) mg/dL POC Glucose (mg/dL) (75-99) mg/dL Hemoglobin A1c 8.0 H (4.0-6.0) % AST 13 L (14-36) U/L Troponin I (0.000-0.034) ng/mL Triglycerides (<150) mg/dL HDL Cholesterol (40-60) mg/dL Urine Appearance (Clear) Urine RBC (0-5) /hpf Urine WBC (0-5) /hpf Urine WBC Clumps (None) /hpf Hyaline Casts (0-2) /lpf Urine Yeast (Budding) (None) /hpf 11/28/17 11/28/17 11/28/17 Range/Units 18:05 18:12 18:39 WBC (3.8-10.6) k/uL RBC (3.80-5.40) m/uL Hgb (11.4-16.0) gm/dL Hct (34.0-46.0) % Neutrophils # (1.3-7.7) k/uL APTT (22.0-30.0) sec Chloride (98-107) mmol/L Carbon Dioxide (22-30) mmol/L BUN (7-17) mg/dL Creatinine (0.52-1.04) mg/dL Glucose (74-99) mg/dL POC Glucose (mg/dL) 132 H (75-99) mg/dL Hemoglobin A1c (4.0-6.0) % AST (14-36) U/L Troponin I 0.148 H* (0.000-0.034) ng/mL Triglycerides (<150) mg/dL HDL Cholesterol (40-60) mg/dL Urine Appearance Cloudy H (Clear) Urine RBC 22 H (0-5) /hpf Urine WBC >182 H (0-5) /hpf Urine WBC Clumps Many H (None) /hpf Hyaline Casts 99 H (0-2) /lpf Urine Yeast (Budding) Moderate H (None) /hpf 11/28/17 11/29/17 11/29/17 Range/Units 20:37 00:28 05:36 WBC (3.8-10.6) k/uL RBC (3.80-5.40) m/uL Hgb (11.4-16.0) gm/dL Hct (34.0-46.0) % Neutrophils # (1.3-7.7) k/uL APTT (22.0-30.0) sec Chloride (98-107) mmol/L Carbon Dioxide (22-30) mmol/L BUN (7-17) mg/dL Creatinine (0.52-1.04) mg/dL Glucose (74-99) mg/dL POC Glucose (mg/dL) 105 H 112 H (75-99) mg/dL Hemoglobin A1c (4.0-6.0) % AST (14-36) U/L Troponin I 0.192 H* (0.000-0.034) ng/mL Triglycerides (<150) mg/dL HDL Cholesterol (40-60) mg/dL Urine Appearance (Clear) Urine RBC (0-5) /hpf Urine WBC (0-5) /hpf Urine WBC Clumps (None) /hpf Hyaline Casts (0-2) /lpf Urine Yeast (Budding) (None) /hpf 11/29/17 11/29/17 11/29/17 Range/Units 06:14 06:14 06:14 WBC (3.8-10.6) k/uL RBC 3.37 L (3.80-5.40) m/uL Hgb 10.0 L D (11.4-16.0) gm/dL Hct 31.3 L (34.0-46.0) % Neutrophils # (1.3-7.7) k/uL APTT (22.0-30.0) sec Chloride (98-107) mmol/L Carbon Dioxide (22-30) mmol/L BUN (7-17) mg/dL Creatinine (0.52-1.04) mg/dL Glucose (74-99) mg/dL POC Glucose (mg/dL) (75-99) mg/dL Hemoglobin A1c (4.0-6.0) % AST (14-36) U/L Troponin I 0.143 H* (0.000-0.034) ng/mL Triglycerides 178 H (<150) mg/dL HDL Cholesterol 35 L (40-60) mg/dL Urine Appearance (Clear) Urine RBC (0-5) /hpf Urine WBC (0-5) /hpf Urine WBC Clumps (None) /hpf Hyaline Casts (0-2) /lpf Urine Yeast (Budding) (None) /hpf 11/29/17 11/29/17 Range/Units 06:14 11:29 WBC (3.8-10.6) k/uL RBC (3.80-5.40) m/uL Hgb (11.4-16.0) gm/dL Hct (34.0-46.0) % Neutrophils # (1.3-7.7) k/uL APTT 54.8 H (22.0-30.0) sec Chloride (98-107) mmol/L Carbon Dioxide (22-30) mmol/L BUN (7-17) mg/dL Creatinine (0.52-1.04) mg/dL Glucose (74-99) mg/dL POC Glucose (mg/dL) 194 H (75-99) mg/dL Hemoglobin A1c (4.0-6.0) % AST (14-36) U/L Troponin I (0.000-0.034) ng/mL Triglycerides (<150) mg/dL HDL Cholesterol (40-60) mg/dL Urine Appearance (Clear) Urine RBC (0-5) /hpf Urine WBC (0-5) /hpf Urine WBC Clumps (None) /hpf Hyaline Casts (0-2) /lpf Urine Yeast (Budding) (None) /hpf Microbiology - Last 24 Hours (Table) 11/28/17 18:12 Urine Culture - Preliminary Urine,Clean Catch Thrombosis Risk Factor Assmnt - DVT/VTE Prophylaxis DVT/VTE Prophylaxis: Pharmacologic Prophylaxis ordered - Choose All That Apply Each Factor Represents 1 point: Obesity (BMI >25) Each Risk Factor Represents 2 Points: Age 61-74 years Thrombosis Risk Factor Assessment Total Risk Factor Score: 3 Thrombosis Risk Factor Assessment Level: Moderate Risk Assessment and Plan Plan: #1 sepsis secondary to urinary tract infection. Leukocytosis is improved. Continue levofloxacin. Urine culture pending. Previous culture susceptible to levofloxacin. The infectious disease consulted #2 troponin anemia likely secondary to demand ischemia/diet to myocardial injury , unlikely to be ACS. Heparin drip discontinued. Patient has previous history of coronary artery disease with stent placement last in 2014. Cardiology following along. Continue aspirin, Lipitor, metoprolol 25 mg twice daily, Procardia 30 mg in a.m. and 90 mg daily at bedtime. Continue Ranexa #3 type 2 diabetes mellitus patient takes Levemir 25 units at bedtime along with sliding scale at home continue Levemir 15 units at at bedtime #4 history of CVA with left-sided hemiparesis continue aspirin #5 history of coronary artery disease status post stent right PDA and right PLV branch in 2013, first OM in 07/2015, continue treatment as #2 #6 chronic kidney disease stage III, stable #7 hyperlipidemia continue Lipitor and Zetia #8 hypertension continue metoprolol, nifedipine, Imdur #9 chronic debility from stroke PTOT consult placed #10 Constipation continue MiraLAX as well as Colace for constipation #11 history of DVT continue eliquis # 12 anemia of chronic disease hemoglobin baseline 10 stable #13 DVT prophylaxis with eliquis #14 GI prophylaxis with Protonix #15 CODE STATUS full code Disposition patient may need 1-2 inpatient nights for evaluation by cardiology as well as infectious disease with multiple comorbidities
[2017-11-29] MEDS ORDERED: HYDROmorphone 0.5 MG/0.5 ML SYRINGE IVP STA (16:06)
[2017-11-29] MEDS: POLYETHYLENE GLYCOL 3350 17 GM POWD.PACK PO SCH (16:10)
[2017-11-29] MEDS: NITROGLYCERIN OINT 1 INCH/GM PACKET TOPICAL SCH (16:24)
[2017-11-29 16:35] LABS: Glucose,Whole Blood 222 mg/dL (75-99)
[2017-11-29] MEDS: HEPARIN SOD,PORK IN 0.45% NACL 25,000 UNIT in 0.45% NACL 1 500ML.BAG IV SCH ×2 (17:34→20:02)
[2017-11-29 20:52] LABS: Glucose,Whole Blood 138 mg/dL (75-99)
[2017-11-29] MEDS ORDERED: LEVOFLOXACIN 750MG-D5W PMX 750 MG in DEXTROSE/WATER 1 150ML.BAG IVPB SCH (21:00)
[2017-11-29] MEDS: INSULIN DETEMIR 100 UNIT/ML 10 ML VIAL SQ SCH (22:04)
[2017-11-29] MEDS: METHOCARBAMOL 500 MG TAB PO SCH (22:05)
[2017-11-29] MEDS: EZETIMIBE 10 MG TAB PO SCH (22:05)
[2017-11-29] MEDS: ATORVASTATIN 20 MG TAB PO SCH (22:05)
[2017-11-29] MEDS: NIFEdipine XL 90 MG TAB.ER.24 PO SCH (22:05)
[2017-11-29] MEDS: METOPROLOL TARTRATE 25 MG TAB PO SCH (22:05)
[2017-11-29] MEDS: ACETAMINOPHEN TAB 325 MG TAB PO PRN (22:18)
[2017-11-30] MEDS: AMPICILLIN-SULBACTAM 1.5 GM in SODIUM CHLORIDE 0.9% 50 ML IVPB SCH ×4 (00:29→17:05)
[2017-11-30] MEDS: NITROGLYCERIN OINT 1 INCH/GM PACKET TOPICAL SCH ×3 (00:30→14:47)
[2017-11-30] MEDS: hydrALAZINE HCL 50 MG TAB PO SCH ×3 (00:30→14:48)
[2017-11-30] MEDS: SODIUM CHLORIDE 0.9% 1,000 ML IV SCH (03:00)
[2017-11-30] MEDS: ACETAMINOPHEN TAB 325 MG TAB PO PRN (04:07)
[2017-11-30 06:12] LABS: Glucose,Whole Blood 135 mg/dL (75-99)
[2017-11-30 06:27] LABS: Basophils % (A) 1 %; Eosinophils # (A) 0.3 k/uL (0-0.7); Eosinophils % (A) 4 %; HCT 31.8 % (34.0-46.0); HGB 9.6 gm/dL (11.4-16.0); Hypochromasia Marked; Lymphocytes % (A) 28 %; MCH 29.2 pg (25.0-35.0); MCHC 30.1 g/dL (31.0-37.0); MCV 96.9 fL (80.0-100.0); Mean Platelet Volume 9.8; Monocytes # (A) 0.3 k/uL (0-1.0); Monocytes % (A) 4 %; Neutrophils # (A) 4.4 k/uL (1.3-7.7); Neutrophils % (A) 61 %; Platelet Count 183 k/uL (150-450); RBC 3.28 m/uL (3.80-5.40); RDW 14.8 % (11.5-15.5); WBC 7.2 k/uL (3.8-10.6)
[2017-11-30 06:43] LABS: ALT 20 U/L (9-52); AST 10 U/L (14-36); Albumin 2.8 g/dL (3.5-5.0); Alkaline Phosphatase 87 U/L (38-126); Anion Gap 10 mmol/L; Blood Urea Nitrogen 18 mg/dL (7-17); Calcium 8.9 mg/dL (8.4-10.2); Carbon Dioxide 16 mmol/L (22-30); Chloride 115 mmol/L (98-107); Sodium 141 mmol/L (137-145); Total Bilirubin <0.1 mg/dL (0.2-1.3); Total Protein 5.6 g/dL (6.3-8.2)
[2017-11-30 06:44] LABS: Glucose 133 mg/dL (74-99)
[2017-11-30] MEDS: INSULIN ASPART 100 UNIT/ML 1 ML 10 ML VIAL SQ SCH ×4 (07:08→20:49)
[2017-11-30] MEDS: PANTOPRAZOLE 40 MG TABLET PO SCH (07:09)
--- NOTE | 2017-11-30 08:12 | CONS ---
CONSULTATION DATE OF CONSULTATION: 11/29/17 REASON FOR CONSULTATION: Urinary tract infection with sepsis. HISTORY OF PRESENT ILLNESS: The patient is a 72-year-old, female, brought into the ER at [facility] last evening on November 28 with chief complaints of fever, frequency of urination and some lower abdominal pain with concern for a urinary tract infection. Patient also did have elevated blood sugar. The patient complaining of burning and frequency of urine but denies any hematuria. Pain to the lower abdominal area for the last few days is more crampy at times dull aching pain 3 to 4/10, and no radiation. Denies any flank pain. The patient denies having any nausea, no vomiting. Denies having any diarrhea. The patient denies having any chest pain. No shortness of breath or cough. With these symptoms, the patient was evaluated by the ER physician on arrival to the ER. The patient did have a low- grade fever of 100. She did have elevated white count of 11.2. Her urine was positive with large leukocyte esterases, more than 1-2 WBC with many bacteria. The patient did have influenza A and B serologies were negative. Recently the patient did have Enterococcus in the urine on August 19 and E coli on July 14. The patient was started on Levaquin and admitted to the hospital. ID was consulted for further recommendation regarding antibiotic therapy. REVIEW OF SYSTEMS: Constitutional: Positive for weakness and low-grade fever. Eyes: No complaint. ENT: No complaint. Respiratory: No complaint. Cardiovascular: No complaint. Genitourinary as per HPI. Gastrointestinal: As per HPI. MUSCULOSKELETAL: No complaint. INTEGUMENTARY: No complaint. PSYCHOLOGICAL: No complaint. Endocrine no complaint. Neurologic no complaint. PAST MEDICAL HISTORY: Significant for coronary artery disease, CVA, TIA, and diabetes mellitus, DVT, hypertension, hyperlipidemia, myocardial infarction, pneumonia and renal insufficiency, history of kidney stones and recurrent UTI. PAST SURGICAL HISTORY: Appendectomy, bowel resection, , cholecystectomy, heart catheterization , PTCA, stenting, hysterectomy, umbilical hernia repair, lithotripsy, and bowel resection. SOCIAL HISTORY: No history of smoking, drinking or any drug use. FAMILY HISTORY: Mother with history of [place] and cancer. Father committed suicide at age of 43. ALLERGIES: No known drug allergies. MEDICATIONS: Include the patient currently on Tylenol, aspirin, Lipitor, Colace, Zetia, hydralazine, NovoLog and Levemir, Imdur, levofloxacin, Robaxin, Lopressor, Narcan, Procardia XL, Nitrostat, Zofran, Protonix, MiraLAX, Ranexa. EXAMINATION: Blood pressure 128/62 with a pulse of 97, temperature of 98, T-max 100.2. She is 97% on 2 L nasal cannula. General description is an elderly female, lying in bed in no distress. No tachypnea or accessory muscles of respiration use. HEENT examination is slight pallor. No scleral icterus. Oral mucosa membranes dry. No pharyngeal erythema or thrush Neck trachea central.No thyromegaly. Lungs unlabored breathing. Clear to auscultation anteriorly. No wheeze or crackles. Heart S1, S2 regular rate and rhythm. ABDOMEN: Soft, no tenderness. No guarding or rigidity. EXTREMITIES: No edema of the feet. Skin examination: No rash or mass palpable. Neurological: Patient is awake, alert, oriented x3. Mood and affect normal. LABS: Hemoglobin 10, white count of 11.2 with a BUN of 27, creatinine 1.80. The troponin is slightly elevated. Blood and urine culture currently pending. DIAGNOSTIC IMPRESSION AND PLAN: Patient admitted to the hospital with generalized weakness and low-grade fever, elevated white count. The patient did have a urine that significantly positive with history of recurrent urinary tract infection, likely representing another episode of urinary tract infection in a patient with previous culture positive for an E coli and Enterococcus, both of them were sensitive pathogen with a urine culture currently pending. PLAN: 1. We will discontinue Levaquin. 2. Will start the patient on Unasyn 1.5 g q.6h. This should cover the likely E coli enterococcus. 3. Depending upon her clinical response as well as cultures will adjust her medications further if needed. Thank you for this consultation. We will follow this patient along with you. MMODL / IJN: [id number] / MTDD
[2017-11-30] MEDS: METOPROLOL TARTRATE 25 MG TAB PO SCH ×2 (08:23→20:56)
[2017-11-30] MEDS: DOCUSATE 100 MG CAP PO SCH ×2 (08:23→20:57)
[2017-11-30] MEDS: POLYETHYLENE GLYCOL 3350 17 GM POWD.PACK PO SCH (08:24)
[2017-11-30] MEDS: RANOLAZINE 500 MG TAB.ER.12H PO SCH ×2 (08:24→20:58)
[2017-11-30] MEDS: ASPIRIN 81 MG PO SCH (08:24)
[2017-11-30] MEDS: ISOSORBIDE MONONITRATE ER 30 MG TAB.ER.24H PO SCH (08:24)
[2017-11-30] MEDS: NIFEdipine XL 30 MG TAB.ER.24 PO SCH (08:38)
[2017-11-30] MEDS: HYDROcodone/APAP 5-325MG 1 EACH TAB PO PRN ×2 (10:02→21:09)
--- NOTE | 2017-11-30 10:47 | ECHOF ---
Referral Reason:elevated troponin MEASUREMENTS -------- HEIGHT: 157.5 cm WEIGHT: 87.1 kg BP: 148/53 IVSd: 1.5 cm (0.6 - 1.1) LVIDd: 4.3 cm (3.9 - 5.3) LVPWd: 1.5 cm (0.6 - 1.1) IVSs: 1.9 cm LVIDs: 1.8 cm LVPWs: 1.8 cm Ao Diam: 2.7 cm (2.0 - 3.7) LA Diam: 3.0 cm (2.7 - 3.8) MV EXCURSION: 10.759 mm (> 18.000) MV EF SLOPE: 55 mm/s (70 - 150) EPSS: 0.5 cm MV E Kee: 1.13 m/s MV DecT: 315 ms MV A Kee: 1.22 m/s MV E/A Ratio: 0.93 RAP: 5.00 mmHg RVSP: 12.42 mmHg FINDINGS -------- Sinus rhythm. This was a technically difficult study with suboptimal views. Pt unable to turn due to stroke. The left ventricular size is normal. There is moderate concentric left ventricular hypertrophy. O verall left ventricular systolic function is normal with, an EF between 55 - 60 %. The right ventricle is normal in size and function. The left atrium is normal in size. The right atrium is normal in size. The aortic valve is trileaflet, and appears structurally normal. No aortic stenosis or regurgitation. The mitral valve leaflets are mildly thickened. Mild mitral annular calcification present. There is trace mitral regurgitation. Trace tricuspid regurgitation present. The right ventricular systolic pressure, as measured by Dopp ler, is 12.42mmHg. Pulmonic valve appears structurally normal. The aortic root, ascending aorta and aortic arch are normal. The pericardium is normal. CONCLUSIONS -------- 1. Sinus rhythm. 2. This was a technically difficult study with suboptimal views. 3. Pt unable to turn due to stroke. 4. The left ventricular size is normal. 5. There is moderate concentric left ventricular hypertrophy. 6. Overall left ventricular systolic function is normal with, an EF between 55 - 60 %. 7. The right ventricle is normal in size and function. 8. The left atrium is normal in size. 9. The right atrium is normal in size. 10. The aortic valve is trileaflet, and appears structurally normal. No aortic stenosis or regurgitat ion. 11. The mitral valve leaflets are mildly thickened. 12. Mild mitral annular calcification present. 13. There is trace mitral regurgitation. 14. Trace tricuspid regurgitation present. 15. The right ventricular systolic pressure, as measured by Doppler, is 12.42mmHg. 16. Pulmonic valve appears structurally normal. 17. The aortic root, ascending aorta and aortic arch are normal. 18. The pericardium is normal. STENOGRAPHIC COURT REPORTER: Yasemin Zelaya RDCS
--- NOTE | 2017-11-30 12:23 | P.PN ---
Subjective Progress Note Date: 11/30/17 72 years old female with history of coronary artery disease with stenting of right PDA and right PLV branch in 2013, first OM in 07/2015, hypertension, hyperlipidemia, diabetes type 2, history of CVA 5 months back with left-sided hemiparesis, CK D3, with history of recurrent UTI , history of DVT wheelchair bound presents with fever, chills associated with urgency, frequency and dysuria. Patient was started on Keflex few days ago for chronic UTI. Previous urine cultures are positive for enterococcus and E. coli. Patient received a dose of levofloxacin in the ED. Labs done in the ER was suggestive of WBC 11.2, troponin 0.148--0.19--0.143. EKG suggestive of some Q waves in lead lead aVF but no other ST or T-wave changes seen. Cardiology evaluated the patient and recommends monitoring for the next 24 hours. Heparin drip discontinued patient started on eliquis. Triglyceride 178 LDL 74 HDL 35. UA done in the ER was cloudy, large leukocyte esterase with WBC more than 182 and 99 hyaline casts. Influenza was negative. Patient is admitted with sepsis from UTI. Patient's family is concerned about patient's care at home which the family is unable to provide and is looking for [facility] facility for her. 11/30: Patient states that she continues to have chest pain with shortness of breath with activity. EKG ordered and cardiology to reassess. Echocardiogram reveals EF of 55-60%, trace mitral regurgitation, trace tricuspid regurgitation. Temperature maximum 100.3. Urine culture came back negative for any growth. Repeat urinalysis ordered for this morning. Patient has been seen by Dr. Ahmadi and Levaquin was discontinued and patient started on Zosyn. Objective - Vital Signs Vital signs: Vital Signs Temp 98.9 F 11/30/17 04:20 Pulse 84 11/30/17 03:00 Resp 16 11/30/17 03:00 BP 148/53 11/30/17 03:00 Pulse Ox 97 11/30/17 03:00 Intake & Output 11/29/17 11/30/17 11/30/17 18:59 06:59 18:59 Intake Total 240 86.827 Output Total 800 200 Balance 240 -713.173 -200 Weight 87.2 kg Intake: Intake, IV Titration 86.827 Amount Heparin Sod,Pork in 0.45% 86.827 NaCl 25,000 unit In 0.45 % NaCl 1 500ml.bag @ 20 UNITS/KG/HR 35.2 mls/hr IV .[id number] ZI Rx#: [id number] Oral 240 Output: Urine 800 200 Other: # Voids 2 - Exam - Constitutional General appearance: cooperative, no acute distress, obese - EENT Eyes: anicteric sclerae, PERRLA, normal appearance ENT: hearing grossly normal - Neck Neck: no lymphadenopathy, normal ROM, no other, no rigidity, no stridor, no thyromegaly - Respiratory Respiratory: bilateral: CTA, negative: diminished, dullness, rales, rhonchi - Cardiovascular Rhythm: regular Heart sounds: normal: S1, S2 Abnormal Heart Sounds: no systolic murmur, no diastolic murmur, no rub, no S3 Gallop, no S4 Gallop, no click, no other - Gastrointestinal General gastrointestinal: normal bowel sounds, soft - Integumentary Integumentary: no rash - Neurologic Neurologic: CNII-XII intact, left-sided hemiparesis present involving both upper and lower extremity - Musculoskeletal Musculoskeletal: Strength reduced in the left lower extremity and upper extremity. Patient is wheelchair bound - Psychiatric Psychiatric: A&O x's 3, appropriate affect - Labs CBC & Chem 7: 11/30/17 05:41 11/30/17 05:41 Labs: Abnormal Lab Results - Last 24 Hours (Table) 11/29/17 11/29/17 11/29/17 Range/Units 11:29 16:27 20:50 RBC (3.80-5.40) m/uL Hgb (11.4-16.0) gm/dL Hct (34.0-46.0) % MCHC (31.0-37.0) g/dL APTT (22.0-30.0) sec Chloride (98-107) mmol/L Carbon Dioxide (22-30) mmol/L BUN (7-17) mg/dL Creatinine (0.52-1.04) mg/dL Glucose (74-99) mg/dL POC Glucose (mg/dL) 194 H 222 H 138 H (75-99) mg/dL Total Bilirubin (0.2-1.3) mg/dL AST (14-36) U/L Total Protein (6.3-8.2) g/dL Albumin (3.5-5.0) g/dL 11/30/17 11/30/17 11/30/17 Range/Units 05:41 05:41 05:41 RBC 3.28 L (3.80-5.40) m/uL Hgb 9.6 L (11.4-16.0) gm/dL Hct 31.8 L (34.0-46.0) % MCHC 30.1 L (31.0-37.0) g/dL APTT 49.3 H (22.0-30.0) sec Chloride 115 H (98-107) mmol/L Carbon Dioxide 16 L (22-30) mmol/L BUN 18 H (7-17) mg/dL Creatinine 1.50 H (0.52-1.04) mg/dL Glucose 133 H (74-99) mg/dL POC Glucose (mg/dL) (75-99) mg/dL Total Bilirubin <0.1 L (0.2-1.3) mg/dL AST 10 L (14-36) U/L Total Protein 5.6 L (6.3-8.2) g/dL Albumin 2.8 L (3.5-5.0) g/dL 11/30/17 Range/Units 06:08 RBC (3.80-5.40) m/uL Hgb (11.4-16.0) gm/dL Hct (34.0-46.0) % MCHC (31.0-37.0) g/dL APTT (22.0-30.0) sec Chloride (98-107) mmol/L Carbon Dioxide (22-30) mmol/L BUN (7-17) mg/dL Creatinine (0.52-1.04) mg/dL Glucose (74-99) mg/dL POC Glucose (mg/dL) 135 H (75-99) mg/dL Total Bilirubin (0.2-1.3) mg/dL AST (14-36) U/L Total Protein (6.3-8.2) g/dL Albumin (3.5-5.0) g/dL Microbiology - Last 24 Hours (Table) 11/28/17 18:12 Urine Culture - Final Urine,Clean Catch 11/28/17 18:05 Blood Culture - Preliminary Blood No Growth after 24 hours Assessment and Plan Plan: #1 sepsis secondary to urinary tract infection. Leukocytosis is improved. Levaquin has been changed to Zosyn by Dr. Ahmadi. Urine culture came back with no growth. Repeat urinalysis to be obtained. #2 troponinnemia likely secondary to demand ischemia. Heparin drip discontinued. Patient has previous history of coronary artery disease with stent placement last in 2014. Cardiology following along. Continue aspirin, Lipitor, metoprolol 25 mg twice daily, Procardia 30 mg in a.m. and 90 mg daily at bedtime. Continue Ranexa #3 type 2 diabetes mellitus patient takes Levemir 25 units at bedtime along with sliding scale at home continue Levemir 15 units at at bedtime #4 history of CVA with left-sided hemiparesis continue aspirin #5 history of coronary artery disease status post stent right PDA and right PLV branch in 2013, first OM in 07/2015, continue treatment as #2 #6 chronic kidney disease stage III, stable #7 hyperlipidemia continue Lipitor and Zetia #8 hypertension continue metoprolol, nifedipine, Imdur #9 chronic debility from stroke PTOT consult placed #10 Constipation continue MiraLAX as well as Colace for constipation #11 history of DVT continue eliquis # 12 anemia of chronic disease hemoglobin baseline 10 stable #13 DVT prophylaxis with eliquis #14 GI prophylaxis with Protonix #15 CODE STATUS full code Discharge plan: [facility] tomorrow Impression and plan of care have been directed as dictated by the signing physician. Rose Morrell nurse practitioner acting as scribe for signing physician.
[2017-11-30 12:42] LABS: Glucose,Whole Blood 234 mg/dL (75-99)
[2017-11-30 13:49] LABS: Appearance,Urine Cloudy (Clear); Bilirubin,Urine Negative (Negative); Blood,Urine Negative (Negative); Budding Yeast,Urine Occasional /hpf; Color,Urine Yellow; Glucose,Urine (UA) Trace (Negative); Ketones,Urine Negative (Negative); Leukocyte Esterase,Urine Large (Negative); Nitrite,Urine Negative (Negative); Protein,Urine 1+ (Negative); Specific Gravity,Urine 1.012 (1.001-1.035); Squamous Epithelial Cell,Urine 5 /hpf (0-4); Urobilinogen,Urine <2.0 mg/dL (<2.0); WBC,Urine >182 /hpf (0-5)
[2017-11-30 14:31] LABS: Glucose,Whole Blood 231 mg/dL (75-99)
[2017-11-30 16:39] LABS: Glucose,Whole Blood 208 mg/dL (75-99)
[2017-11-30] MEDS: HEPARIN SOD,PORK IN 0.45% NACL 25,000 UNIT in 0.45% NACL 1 500ML.BAG IV SCH (17:28)
[2017-11-30 20:42] LABS: Glucose,Whole Blood 217 mg/dL (75-99)
[2017-11-30] MEDS: INSULIN DETEMIR 100 UNIT/ML 10 ML VIAL SQ SCH (20:44)
[2017-11-30] MEDS: EZETIMIBE 10 MG TAB PO SCH (20:55)
[2017-11-30] MEDS: NIFEdipine XL 90 MG TAB.ER.24 PO SCH (20:55)
[2017-11-30] MEDS: ATORVASTATIN 20 MG TAB PO SCH (20:56)
[2017-11-30] MEDS: METHOCARBAMOL 500 MG TAB PO SCH (20:58)
[2017-11-30] MEDS ORDERED: LEVOFLOXACIN 250 MG TAB PO SCH (21:00)
[2017-11-30 23:11] LABS: Glucose,Whole Blood 198 mg/dL (75-99)
[2017-12-01] MEDS: NITROGLYCERIN OINT 1 INCH/GM PACKET TOPICAL SCH ×2 (00:35→08:04)
[2017-12-01] MEDS: AMPICILLIN-SULBACTAM 1.5 GM in SODIUM CHLORIDE 0.9% 50 ML IVPB SCH ×3 (00:35→13:04)
[2017-12-01] MEDS: hydrALAZINE HCL 50 MG TAB PO SCH ×2 (00:36→08:04)
[2017-12-01] MEDS: HYDROcodone/APAP 5-325MG 1 EACH TAB PO PRN (06:04)
[2017-12-01 07:42] LABS: Glucose,Whole Blood 188 mg/dL (75-99)
[2017-12-01 08:03] VITALS: RESP 18
[2017-12-01] MEDS: ISOSORBIDE MONONITRATE ER 30 MG TAB.ER.24H PO SCH (08:04)
[2017-12-01] MEDS: DOCUSATE 100 MG CAP PO SCH (08:04)
[2017-12-01] MEDS: NIFEdipine XL 30 MG TAB.ER.24 PO SCH (08:04)
[2017-12-01] MEDS: INSULIN ASPART 100 UNIT/ML 1 ML 10 ML VIAL SQ SCH ×2 (08:04→13:04)
[2017-12-01] MEDS: RANOLAZINE 500 MG TAB.ER.12H PO SCH (08:04)
[2017-12-01] MEDS: METOPROLOL TARTRATE 25 MG TAB PO SCH (08:04)
[2017-12-01] MEDS: POLYETHYLENE GLYCOL 3350 17 GM POWD.PACK PO SCH (08:04)
[2017-12-01] MEDS: ASPIRIN 81 MG PO SCH (08:05)
[2017-12-01] MEDS: PANTOPRAZOLE 40 MG TABLET PO SCH (08:05)
--- NOTE | 2017-12-01 08:07 | PN ---
PROGRESS NOTE DATE OF SERVICE: 11/30/17 REASON FOR FOLLOW UP: Urinary tract infection. INTERVAL HISTORY: The patient did have a low-grade fever last night of 100.3, afebrile since then. She is breathing comfortably. Denies significant chest pain or cough. Abdominal pain has improved and no diarrhea. EXAMINATION: Blood pressure is 157/68 with a pulse of 83, temperature of 99.1, T-max of a 100.3. She is 94% on room air. General description is an elderly female lying in bed in no distress. Respiratory system unlabored breathing, clear to auscultation anteriorly. Heart S1, S2. Regular rate and rhythm. Abdomen soft, no tenderness. LABS: Blood culture negative. Initially it came back negative. DIAGNOSTIC IMPRESSION AND PLAN: Patient with fever, likely urinary tract infection. The patient did have symptoms of some lower abdominal pain. Repeat urine now showing yeast. Diflucan will be added. Continue with Unasyn while waiting for the culture to finalize. Continue supportive care. MMODL / IJN: [id number] / MARRY
[2017-12-01 08:36] LABS: Calcium 9.4 mg/dL (8.4-10.2); Potassium 3.9 mmol/L (3.5-5.1); Total Bilirubin 0.3 mg/dL (0.2-1.3); Total Protein 5.9 g/dL (6.3-8.2)
[2017-12-01 08:37] LABS: Basophils % (A) 1 %; Eosinophils # (A) 0.3 k/uL (0-0.7); Eosinophils % (A) 4 %; HCT 30.3 % (34.0-46.0); HGB 9.8 gm/dL (11.4-16.0); Lymphocytes # (A) 1.7 k/uL (1.0-4.8); Lymphocytes % (A) 22 %; MCH 29.7 pg (25.0-35.0); MCHC 32.4 g/dL (31.0-37.0); Mean Platelet Volume 9.4; Monocytes # (A) 0.4 k/uL (0-1.0); Monocytes % (A) 4 %; Neutrophils # (A) 5.5 k/uL (1.3-7.7); Neutrophils % (A) 69 %; Platelet Count 192 k/uL (150-450); RBC 3.31 m/uL (3.80-5.40); RDW 13.7 % (11.5-15.5)
[2017-12-01 08:56] LABS: MCV 91.8 fL (80.0-100.0)
--- NOTE | 2017-12-01 10:00 | P.DS ---
Providers Date of admission: 11/28/17 19:38 Expected date of discharge: 12/01/17 Attending physician: Nestor Beal MD Consults: 11/28/17 19:25 Consult Physician Urgent Consulting Provider: Evin Hua Consult Reason/Comments: NSTEMI Do you want consulting provider notified?: Yes 11/29/17 14:37 Consult Physician Routine Consulting Provider: Marlen Ahmadi Consult Reason/Comments: UTI sepsis Do you want consulting provider notified?: Yes Primary care physician: [place] [facility] Course: 72 years old female with history of coronary artery disease with stenting of right PDA and right PLV branch in 2013, first OM in 07/2015, hypertension, hyperlipidemia, diabetes type 2, history of CVA 5 months back with left-sided hemiparesis, CK D3, with history of recurrent UTI , history of DVT wheelchair bound presents with fever, chills associated with urgency, frequency and dysuria. Patient was started on Keflex few days ago for chronic UTI. Previous urine cultures are positive for enterococcus and E. coli. Patient received a dose of levofloxacin in the ED. Labs done in the ER was suggestive of WBC 11.2, troponin 0.148--0.19--0.143. EKG suggestive of some Q waves in lead lead aVF but no other ST or T-wave changes seen. Cardiology evaluated the patient and recommends monitoring for the next 24 hours. Heparin drip discontinued patient started on eliquis. Triglyceride 178 LDL 74 HDL 35. UA done in the ER was cloudy, large leukocyte esterase with WBC more than 182 and 99 hyaline casts. Influenza was negative. Patient is admitted with sepsis from UTI. Patient's family is concerned about patient's care at home which the family is unable to provide and is looking for [facility] facility for her. 11/30: Patient states that she continues to have chest pain with shortness of breath with activity. EKG ordered and cardiology to reassess. Echocardiogram reveals EF of 55-60%, trace mitral regurgitation, trace tricuspid regurgitation. Temperature maximum 100.3. Urine culture came back negative for any growth. Repeat urinalysis ordered for this morning. Patient has been seen by Dr. Ahmadi and Levaquin was discontinued and patient started on Zosyn. 12/01: Repeat hemoglobin is 9.8, white count is 8. Creatinine is 1.66. Blood blood glucose running 188-217. Repeat urinalysis is cloudy, protein 1+, glucose trace, leukoesterase large, WBC greater than 182, squamous cell 5. Dr. Ahmadi has recommend oral Augmentin. She will be discharged to [facility] in stable condition. Discharge diagnoses: #1 sepsis secondary to urinary tract infection. #2 troponinnemia likely secondary to demand ischemia. #3 type 2 diabetes mellitus #4 history of CVA with left-sided hemiparesis #5 history of coronary artery disease status post stent right PDA and right PLV branch in 2013, first OM in 07/2015 #6 chronic kidney disease stage III, stable #7 hyperlipidemia #8 hypertension #9 chronic debility from stroke #10 Constipation #11 history of DVT on eliquis # 12 anemia of chronic disease Discharge plan: [facility] Impression and plan of care have been directed as dictated by the signing physician. Rose Morrell nurse practitioner acting as scribe for signing physician. Patient Condition at Discharge: Good Plan - Discharge Summary New Discharge Prescriptions: New Amoxic-Pot Clav 500-125 mg [Augmentin 500-125 mg] 1 tab PO Q12HR #14 tab Atorvastatin [Lipitor] 20 mg PO HS tab HYDROcodone/APAP 5-325MG [[place] 5-325] 1 each PO Q8H PRN #30 tab PRN Reason: MODERATE Pain Metoprolol Tartrate [Lopressor] 25 mg PO BID tab Pantoprazole [Protonix] 40 mg PO AC-BRKFST tablet. Polyethylene Glycol 3350 [Miralax] 17 gm PO DAILY powd.pack Isosorbide Mononitrate ER [Imdur] 60 mg PO DAILY tab.er.24h Continue Insulin Glargine [Lantus] 25 unit SQ HS Insulin Aspart [NovoLOG (formulary)] 15 unit SQ AC-TID Ezetimibe [Zetia] 10 mg PO HS Ranolazine [Ranexa] 500 mg PO Q12HR Apixaban [Eliquis] 5 mg PO BID hydrALAZINE HCL [Apresoline] 100 mg PO Q8HR Aspirin EC [Ecotrin Low Dose] 81 mg PO DAILY NIFEdipine [NIFEdipine ER] 90 mg PO HS NIFEdipine [NIFEdipine ER] 30 mg PO DAILY Nitroglycerin Sl Tabs [Nitrostat] 0.4 mg SUBLINGUAL Q5M PRN PRN Reason: Chest Pain Docusate [Colace] 100 mg PO BID Methocarbamol [Robaxin] 500 mg PO HS Discontinued Isosorbide Mononitrate [Imdur] 30 mg PO DAILY Losartan [Cozaar] 12.5 mg PO DAILY tab Methocarbamol [Robaxin] 500 mg PO BID PRN PRN Reason: Muscle Spasm Cephalexin [Keflex] 250 mg PO DAILY Discharge Medication List Apixaban [Eliquis] 5 mg PO BID 08/17/17 [History] Aspirin EC [Ecotrin Low Dose] 81 mg PO DAILY 08/17/17 [History] Ezetimibe [Zetia] 10 mg PO HS 08/17/17 [History] Insulin Aspart [NovoLOG (formulary)] 15 unit SQ AC-TID 08/17/17 [History] Insulin Glargine [Lantus] 25 unit SQ HS 08/17/17 [History] NIFEdipine [NIFEdipine ER] 30 mg PO DAILY 08/17/17 [History] NIFEdipine [NIFEdipine ER] 90 mg PO HS 08/17/17 [History] Ranolazine [Ranexa] 500 mg PO Q12HR 08/17/17 [History] hydrALAZINE HCL [Apresoline] 100 mg PO Q8HR 08/17/17 [History] Docusate [Colace] 100 mg PO BID 11/28/17 [History] Methocarbamol [Robaxin] 500 mg PO HS 11/28/17 [History] Nitroglycerin Sl Tabs [Nitrostat] 0.4 mg SUBLINGUAL Q5M PRN 11/28/17 [History] Amoxic-Pot Clav 500-125 mg [Augmentin 500-125 mg] 1 tab PO Q12HR #14 tab [Rx] Atorvastatin [Lipitor] 20 mg PO HS tab 12/01/17 [Rx] HYDROcodone/APAP 5-325MG [[place] 5-325] 1 each PO Q8H PRN #30 tab 12/01/17 [Rx] Isosorbide Mononitrate ER [Imdur] 60 mg PO DAILY tab.er.24h 12/01/17 [Rx] Metoprolol Tartrate [Lopressor] 25 mg PO BID tab 12/01/17 [Rx] Pantoprazole [Protonix] 40 mg PO AC-BRKFST tablet. 12/01/17 [Rx] Polyethylene Glycol 3350 [Miralax] 17 gm PO DAILY powd.pack 12/01/17 [Rx] Follow up Appointment(s)/Referral(s): Kem Stanley MD [Primary Care Provider] - 1 Week (after discharge from [facility] ) Marlen Ahmadi MD [STAFF PHYSICIAN] - 2 Weeks Discharge Disposition: TRANSFER TO SNF/ECF
[2017-12-01] MEDS: HEPARIN SOD,PORK IN 0.45% NACL 25,000 UNIT in 0.45% NACL 1 500ML.BAG IV SCH (11:31)
[2017-12-01 11:33] LABS: Glucose,Whole Blood 243 mg/dL (75-99)
[2017-12-01] MEDS ORDERED: APIXABAN 5 MG TAB PO SCH (11:45)
[2017-12-01 15:58] VITALS: BP 157/70; PULSE 69; TEMP 97.9
--- NOTE | 2017-12-01 16:40 | PN ---
PROGRESS NOTE DATE OF SERVICE: 12/01/2017 REASON FOR FOLLOW UP: Recurrent urinary tract infection. INTERVAL HISTORY: The patient is afebrile. She is breathing comfortably. Still complaining of burning urination and frequency. The patient denies having any chest pain or shortness of breath or cough. No abdominal pain, diarrhea. EXAMINATION: Blood pressure 149/72 with a pulse of 70, temperature 98.1. She is 95% on 2 L nasal cannula. General description is an elderly female lying in bed in no distress. Respiratory system unlabored breathing. Clear to auscultation anteriorly. Heart S1, S2 regular rate and rhythm. Abdomen soft, no tenderness. LABS: White count normalized to 8.0, creatinine 1.66, culture has been negative. DIAGNOSTIC IMPRESSION AND PLAN: Patient with recurrent urinary tract infection in this postmenopausal woman. Care was discussed in detail with the daughter. The patient will benefit from increasing fluid intake, cranberry juice and the intravaginal estrogen cream in addition to the personal hygiene to decrease risk of recurrent UTIs with this episodes responded to Unasyn, will be given short course of oral Augmentin 875 twice a day 5 days. All their questions and concerns were answered. MMODL / IJN: [id number] / MTDD
== END 2017-12-01 16:50 | DRG 872 ==
LOC: EC 16:45 → 6SEL 19:38 → 5MS5E 11-30 18:58
PROVIDERS: ADMIT Internal Medicine; ATTEND Internal Medicine
DX: A41.9 Sepsis, unspecified organism (principal); E11.22 Type 2 diabetes mellitus with diabetic chronic kidney disease; E11.65 Type 2 diabetes mellitus with hyperglycemia; I69.354 Hemiplegia and hemiparesis following cerebral infarction affecting left non-dominant side; N39.0 Urinary tract infection, site not specified; I24.8 Other forms of acute ischemic heart disease; D63.8 Anemia in other chronic diseases classified elsewhere; E78.5 Hyperlipidemia, unspecified; I12.9 Hypertensive chronic kidney disease with stage 1 through stage 4 chronic kidney disease, or unspecified chronic kidney disease; I25.10 Atherosclerotic heart disease of native coronary artery without angina pectoris; I25.2 Old myocardial infarction; I48.91 Unspecified atrial fibrillation; K21.9 Gastro-esophageal reflux disease without esophagitis; K58.9 Irritable bowel syndrome, unspecified; N18.3 Chronic kidney disease, stage 3 (moderate); Z79.01 Long term (current) use of anticoagulants; Z79.4 Long term (current) use of insulin; Z79.899 Other long term (current) drug therapy; Z82.49 Family history of ischemic heart disease and other diseases of the circulatory system; Z83.3 Family history of diabetes mellitus; Z86.718 Personal history of other venous thrombosis and embolism; Z87.440 Personal history of urinary (tract) infections; Z87.442 Personal history of urinary calculi; Z90.710 Acquired absence of both cervix and uterus; Z95.5 Presence of coronary angioplasty implant and graft; Z99.3 Dependence on wheelchair
CPT/HCPCS: 36415; 71046; 74018; 80053; 80061; 81001; 82550; 82553; 83036; 83605; 84484; 85025; 85610; 85730; 87040; 87086; 87502; 93005; 93306; 94760; 96365; 96375; 99285